=== PATIENT | male | born 1950 | race Caucasian/White ===

== ENCOUNTER 2024-10-03 14:14 | Emergency (ER) | payer MEDICARE, SELFPAY ==
--- OUTSIDE RECORDS SUMMARY | 2004-10-08 19:00 | XMS_ITS | Continuity of Care Document ---
Author Organization [facility] Address [address] [address] [place] [address] Phone Care Team Providers Care Rotary Driller Name Role Phone Unavailable Unavailable Unavailable Advance Directives Directive Yes / No Effective Date File Name No Information Encounters Encounter Description Practice Location Reason(s) For Visit Diagnoses Date Provider Providers Copied on Encounter [facility], [address] [address], [place], [place], [id number], [place] tel:[phone] [facility] No Information 6200 5 No Information Family History Family Member Type Diagnosis Age At Onset No Information Payers Payer name Insurance type Covered democrat ID Authoriza tion(s) Blue [employer] Of [facility] [id number] Social History Type Description Quantity Date Captured Comments Sex Male Smoking Status No Information Chief Complaint And Reason For Visit No Information Reason For Referral Reason For Referral No Information History Of Present Illness Encounter Date Complaint History Of Prese nt Illness No Information Functional Status Date Functional Assessmen t No Information Instructions Date Instruction Additional Infor mation No Information Assessments Type Assessment Date No Information Patient Care Teams Name Effective Dates (start - stop) Status Members No Information
--- OUTSIDE RECORDS SUMMARY | 2004-10-08 19:00 | XMS_ITS | Continuity of Care Document ---
Author Organization [facility] Address [address] [address] [place] [address] Phone Care Team Providers Care Grommet Worker Name Role Phone Unavailable Unavailable Unavailable Advance Directives Directive Yes / No Effective Date File Name No Information Encounters Encounter Description Practice Location Reason(s) For Visit Diagnoses Date Provider Providers Copied on Encounter [facility], [address] [address], [place], [place], [id number], [place] tel:[phone] [facility] No Information 6200 5 No Information Family History Family Member Type Diagnosis Age At Onset No Information Payers Payer name Insurance type Covered constitution party ID Authoriza tion(s) Blue Cross Of [facility] [id number] Social History Type Description Quantity Date Captured [...]
[2024-10-03] VITALS (8 sets, daily range): BP systolic 130–135; BP diastolic 71–99; PULSE 63–95; RESP 16–20; TEMP 37.1; O2SAT 90–98; BMI 32.3
--- OUTSIDE RECORDS SUMMARY | 2024-10-03 14:16 | XMS_ITS | Clinical Summary ---
Author Organization [facility] Address [address] , [address] [place] [address] Phone Care Team Providers Care Art Glass Setter Name Role Phone Her Adeel BERMUDEZ Nou Unavailable Conditions or Problems Problem Name Problem Code Onset Date Status Entry Date Provider Comment Standard Description Annotate Chronic kidney disease, stage 3 unspecified N18.30 (ICD-10-CM) 05/02 Active 05/02 Dieudonne Bender MD Chronic kidney disease, stage 3 unspecified Leg weakness, bilateral - mainly distal feet 090921467 (SNOMED CT) 05/02 Active 05/02 Dieudonne Bender MD Paresis of lower extremity Carpal tunnel syndrome, bilateral upper limbs 163457551952033 01 (SNOMED CT) 05/02 Active 05/02 Dieudonne Bender MD Bilateral carpal tunnel syndrome TIA 723983087 (SNOMED CT) Active Kumar Roland MD Transient cerebral ischemia Numbness/tin gling 782.0 (ICD-9-CM) 05/12 Active 05/12 Aleksandra Mistry MD Disturbance of skin sensation Neuropathy 779498857 (SNOMED CT) 05/12 Active 05/12 Aleksandra Mistry MD Neuropathy Medications Medication Instructions Start Date Stop Date Generic Name [facility] Provider GABAPENTIN 300 MG CAPS capsule by mouth 7 gabapentin 66633051035 Dieudonne Bender MD ASPIRIN 325 MG TABS once a day 7 aspirin 46534570558 Dieudonne Bender MD TRAMADOL HCL 50 MG TABS tablet by mouth 7 tramadol 51186207964 Dieudonne Bender MD METOPROLOL TARTRATE 25 MG TABS metoprolol tartrate 62408693058 Dieudonnekatharina Bender MD FUROSEMIDE 20 MG TABS furosemide 44722901091 Dieudonnekatharina Bender MD ISOSORBIDE DINITRATE 10 MG TABS isosorbide dinitrate 83762293524 Dieudonnekatharina Bender MD GLIMEPIRIDE 4 MG TABS glimepiride 23726199837 Dieudonnekatharina Bender MD HYDROCODONE-DANN TAMINOPHEN 5-325 MG TABS hydrocodone-ac etaminophen 51186648981 Dieudonnekatharina Bender MD HYDRALAZINE HCL 10 MG TABS hydralazine 66841159828 Dieudonnekatharina Bender MD ALLOPURINOL 100 MG TABS allopurinol 33322669952 Dieudonnekatharina Bender MD GABAPENTIN 300 MG CAPS 600/900/600 GABAPENTIN 23941948675 Aleksandra Mistry MD TRAMADOL HCL 50 MG TABS TRAMADOL HCL 15261491258 Aleksandra Mistry MD PERCOCET 5-325 MG TABS OXYCODONE-ACET AMINOPHEN 81667858117 Aleksandra Mistry MD ASPIRIN 325 MG TABS daily ASPIRIN 63624253103 Aleksandra Mistry MD Medications Administered No information available. Allergies, Adverse Reactions, Alerts Observed no known allergies at Results Date Name Value Unit Range Flag Description Office Visit: mail SMOK ADVICE Yes Smoking c essation education (procedure) SMOK STATUS Current every day smoker Tobacco smoking status Internal Other: Authorizatio n - OBS PTSTAUTHDT DONE PT Startin g Authorization Date [id number] Yes GE use only - for Link[employer] import when terms are not otherwise specified HIECONSENT Yes Consent To Release information to the Health Information Exchange ([employer]) Office Visit: Office Visit L eg/Feet/hands numb/ting No imaging Recs in.Exc MEDS REVIEW Done Documenta tion of current medications (procedure) Plan of Care Type Date Detail Pending order Follow up with N eurologist or TERELL Pending order Follow up with N eurologist or TERELL Pending order EMG bilateral lo w ext Pending order EMG bilateral up per ext Pending order Physical Therapy Pending order Patient Instruct ions Pending order MRI-Brain W/O Pending order MRA-Neck W/O Pending order MRI-Brain W/O Pending Order exclud ed from report: Pending order MRA-Neck W/O Pending Order exclud ed from report: Procedures Code Procedure Name Date Entry Date ORDERS EMG bilateral low ext 05/02 CPT-18488 Nerve Conduction 9-10 studies CPT-00538 EMG with NCS (5+ muscles) - 2 limbs 05/15 ORDERS EMG bilateral upper ext 2024 ORDERS Patient Instructions ORDERS Physical Therapy [facility]-[id number] Documentation of current medicatio ns [id number] MRI-Brain W/O [id number] MRA-Neck W/O Vital Signs Date Name Value Unit Description Height 71 [in_us] height E&M Heart Rate 78 /min pulse rate BMI (Body Mass Index) 30.51 kg/m2 Bod y Mass Index (Ratio) BP Diastolic 115 mm[Hg] blood pressu re, diastolic BP Diastolic 110 mm[Hg] blood pressu re, diastolic, second observation BP Systolic 169 mm[Hg] blood pressur e, systolic BP Systolic 170 mm[Hg] blood pressur e, systolic, second observation Weight Measured 218 [lb_av] weight E& M Weight Measured 218 [lb_av] weight E& M Immunizations No information available. Advance Directives No information available.
--- OUTSIDE RECORDS SUMMARY | 2024-10-03 14:17 | XMS_ITS | Clinical Summary ---
Author Organization [employer] [facility] Address [address] [place] [id number] Care Team Providers Care Fixed Income Portfolio Manager Name Role Phone Sunshine Batista MD Unavailable Unavailable Ranjit oMmin MD Unavailable Dana Esparza NP Unavailable Unavail able VotelRamone MD Primary Care Provider + Allergies Active Allergy Reactions Criticality Noted Date Comments Jeffrey Inhibitors Cough Unknown 08/12/2011 Pioglitazone Other - Describe In Comment Field 07/01/2018 Contraindicated in HF and AF due to fluid retention Glipizide Stomach Upset Low 03/09/2017 Levofloxacin Headache 06/02/2012 Dry mouth, unable to sleep and anxious Metformin GI Upset Low 06/02/2016 Abdominal cramping Medications Blood Glucose Strip-Disp Meter kitIndications:Ty pe 2 diabetes mellitus without complication, without long-term current use of insulin (HC) As directed. Dispense item covered by pt ins. E11.65 NIDDM type II, uncontrolled - Test 1 time/day 1 Kit 017 Active NebulizerIndicati ons:Obstructive chronic bronchitis without exacerbation (HC) Nebulizer, disposable neb kit x 4, reuseable neb kit x 1, mask x 1, filters x 1. Medication: DuoNeb QID Length of need: 99 months 1 Device 018 Active aspirin (ECOTRIN) 81 mg enteric coated tablet Take 1 tablet by mouth once daily with a meal. 0 020 Active Blood-Glucose Meter (OneTouch Ultra2 Meter)Indications :Type 2 diabetes mellitus with diabetic polyneuropathy, without long-term current use of insulin (HC) Dispense glucose meter, test strips and lancets covered by the patient insurance. Test 1 times per day. 1 Each 022 Active fluticasone propion-salmetero L (Advair Diskus) 250-50 mcg/Dose diskus inhalerIndication s:Chronic combined systolic and diastolic heart failure (HC) Inhale 1 Puff by mouth two times daily. 60 Each 5 024 Active cholecalciferol (VITAMIN D3) 50,000 unit capsuleIndication s:Vitamin D deficiency TAKE 1 CAPSULE BY MOUTH EVERY WEDNESDAY AND WEDNESDAY 12 Capsule 1 024 Active nebulizer accessories kitIndications: ronic obstructive pulmonary disease, unspecified COPD type (HC) For home use. Length of need: 99 1 Kit 024 Active cycloSPORINE (Restasis) 0.05 % ophthalmic emulsionIndicatio ns:Dry eye syndrome of both eyes Place 1 Drop into both eyes every 12 hours. 60 Each 3 024 Active metFORMIN 500 mg Extended-Release tabletIndications :Type 2 diabetes mellitus with diabetic polyneuropathy, without long-term current use of insulin (HC) Take 2 Tablets (1,000 mg) by mouth once daily with evening meal. 60 Tablet 3 025 Active traMADoL 50 mg tabletIndications :Peripheral polyneuropathy Take 2 Tablets (100 mg) by mouth three times daily. 180 Tablet 025 Active isosorbide dinitrate 10 mg tabletIndications :Primary cardiomyopathy (HC) TAKE 1 TABLET(10 MG) BY MOUTH THREE TIMES DAILY 270 Tablet 3 025 Active hydrALAZINE 10 mg tabletIndications :Primary cardiomyopathy (HC) TAKE 1 TABLET BY MOUTH THREE TIMES DAILY 270 Tablet 3 025 Active HYDROcodone-aceta minophen (5-325 mg/tablet)Indicat ions:Peripheral polyneuropathy Take 1 Tablet by mouth every 6 hours if needed for Pain. Max acetaminophen dose: 4000 mg in 24 hrs. 120 Tablet 025 Active glimepiride 4 mg tabletIndications :Type 2 diabetes mellitus with diabetic polyneuropathy, without long-term current use of insulin (HC) TAKE 1 TABLET(4 MG) BY MOUTH DAILY WITH A MEAL 90 Tablet 3 025 Active furosemide 20 mg tabletIndications :Chronic combined systolic and diastolic heart failure (HC),Chronic atrial fibrillation (HC) Take 1 Tablet (20 mg) by mouth two times daily. 180 Tablet 3 025 Active allopurinoL 100 mg tabletIndications :Chronic gout of left elbow, unspecified cause Take 1 Tablet (100 mg) by mouth once daily. 90 Tablet 3 025 Active albuterol-ipratro pium (2.5-0.5 mg) in 3 mL NEBULIZATION solutionIndicatio ns:Chronic obstructive pulmonary disease, unspecified COPD type (HC) USE 3 ML VIA NEBULIZER EVERY 6 HOURS NEEDED FOR SHORTNESS OF BREATH 180 mL 3 025 Active gabapentin 300 mg capsuleIndication s:Peripheral polyneuropathy TAKE 4 CAPSULES BY MOUTH TWICE DAILY 480 Capsule 025 Active metoprolol tartrate 25 mg tabletIndications :Hypertension, unspecified type TAKE 3 TABLETS(75 MG) BY MOUTH TWICE DAILY 540 Tablet 2 025 Active gabapentin (NEURONTIN) 300 mg capsuleIndication s:Peripheral polyneuropathy TAKE 4 CAPSULES BY MOUTH TWICE DAILY 720 Capsule 2 024 2024 Discontinued metoprolol tartrate 25 mg tabletIndications :Hypertension, unspecified type TAKE 3 TABLETS(75 MG) BY MOUTH TWICE DAILY 540 Tablet 3 025 2024 Discontinued(* Availability/F ormulary change/Cost of medication) Active Problems Problem Noted Date Diagnosed Date Diabetic ulcer of left midfo ot associated with type 2 diabetes mellitus, limited to breakdown of skin 08/07/2024 Chronic obstructive pulmonar y disease, unspecified COPD type 06/22/2023 Aortic dilatation 07/09/2022 Tubular adenoma of colon 02/26/2020 Overview (02/28/2020): Multiple benign polyps, repeat colonoscopy in 3 years. Severe obesity 03/21/2019 Stage 3b chronic kidney disease 06/05/2018 Overview (01/30/2020): GFRs ranging from 36-41 during Type 2 diabetes mellitus wit h diabetic polyneuropathy, without long-term current use of insulin 12/04/2016 Cortical senile cataract of both eyes 07/27/2016 Myopia of both eyes with astigmatism and presbyo darian 07/27/2016 Trigeminal herpes zoster 05/01/2016 Tobacco dependence 06/04/2015 Thrombocytopenia 01/12/2015 Controlled substance agreement signed and wily singh 08/13/10 03/07/2014 Overview (07/09/2022): Updated 07/09/2022 [place] 5/325 120 tabs/month ; Ultram 50 mg 2 oral TID = 180 tabs/month Designated pharmacy: [facility] Diagnosis: elbow pain, peripheral neuropathy in diabetes mellitus Erectile dysfunction 02/15/2012 Overview (07/20/2017): Since cardiac bypass pump machine 7 hours for valve viagra 100 not working Offered injection and pump and he declined Offered he could choose between cigarettes and erections. After 3 months off cigarettes likely viagra would work. He will think about it. S/P MVR (mitral valve repair ) 36 mm Robertson Physio II mitral annuloplasty system 11/12/2011 S/P Maze operation for atria l fibrillation obliteration of left atrial appendage with 50 mm AtriCure left atrial appndage clip 11/12/2011 Hyperbilirubinemia 11/12/2011 Atrial fibrillation, chronic 04/26/2011 Overview (02/01/2020): s/p Maze procedure and clipping of left atrial appendage Vitamin D deficiency 07/23/2010 DERMATITIS/seborreic 04/21/2006 CEREBELLAR INFARCT 10/21/2004 Gout 11/17/2001 Essential hypertension Resolved Problems Problem Noted Date Diagnosed Date Resolved Date Combined systolic and diastolic heart failure 07/02/19 19 07/09/2022 Tobacco dependence 06/05/2018 9 COPD with acute exacerbation 06/05/2018 01/20/2022 Upper respiratory infection 06/05/2018 07/09/2022 Diabetic ulcer of right midf oot associated with diabetes mellitus due to underlying condition, with fat layer exposed 09/17/20162019 Diabetes mellitus without complication 07/27/2016 09/03/2017 Erysipelas of lower extremity 01/13/2015 06/05/2018 Cellulitis and abscess of leg 01/12/2015 06/05/2018 Anemia due to blood loss from surgery 11/12/2011 02/04/2012 Thrombocytopenia due to extr a corporeal by-pass circulation 11/12/2011 02/04/2012 Stress hyperglycemia 11/12/2011 012 COPD (chronic obstructive pulmonary disease) 2 01/20/2022 Subacute bacterial endocarditis (SBE) 08/12/2011 01/20/2022 Peripheral neuropathy 07/04/20092022 Overview (02/21/2019): Treated with tramadol 50 mg 2 tabsTID and [place] 5/325 QID in addition to gabapentin and Lyrica. Other diseases of trachea an d bronchus, not elsewhere classified 03/26/2004 06/09/2005 PAIN IN JOINT, ANKLE/FOOT ARTHRALGIA - UNSPECIFIED SITE 03/26/2004 Rectal bleed 07/09/2022 Encounters Date Type Department Care Team Description 09/29/2024 Refill [facility] [address] [place] [address] Ramone Pearosn MD Refill Request (Gabapentin, Metoprolol Tartrate) 08/09/2024 Telephone [facility] [address] [place] [address] Ramone Pearson MD Message (Custom diabetes shoes) 08/08/2024 Telephone [facility] [address] [place] [address] Ramone Pearson MD Form 08/07/2024 Telephone [facility] [address] [place] [address] Ramone Pearson MD Medication Management 08/03/2024 3:20 PM CDT Office Visit [facility] [address] [place] [address] Ramone Pearson MD Medicare ANNUAL (subsequent) Visit (74 year old ) 08/03/2024 Travel 07/31/[address] [place] [address] VotelRamone MD Questions (Regarding appt 08/03/24) 07/30/2024 Refill [facility] [address] [facility] [address] VotelRamone MD Refill Request (Glimepiride, Furosemide, Allopurinol) from Last 3 Months Immunizations Immunization Administration Dates Next Due COVID-19 vaccine (Moderna 100mcg/0.5mL) PF, MDV 07/04/2020,06/07/2020 COVID-19 vaccine (Pfizer-Bio NTech 30mcg/0.3mL) PF, MDV 03/17/2021 Influenza RIV4 (Age 18+ Year s) PRESERV FREE 02/06/2019 Influenza, High-dose Inactivated 01/24/2017 Influenza, IIV3 (Age >=3 years) 01/29/20 12,04/25/2011,02/13/2011,2006,03/28/2003 Influenza, IIV4 01/13/2015 Influenza, Inactivated AIIV4 (Age 65+ Years) Preserv Free 01/20/2022,02/03/2021,01/29/2020 Influenza, Inactivated IIV3 (Age 65+ Years) Preserv Free 06/06/2018(),02/28/2018 Pneumococcal Poly,23-Valent (Pneumovax) 01/29/2020,04/25/2002 Pneumococcal conj 13-Valent (Prevnar 13) 05/27/2017 Tdap 10/09/2011 Zoster (Shingrix-RZV, recombinant) 01/29/2020, Family History Medical History Relation Name Comments Blindness Mother Unknown Mother Glacoma Genetic Other No hx of DM, CA D, HTN or colon or prostate cancer.~glaucoma-mother Relation Name Status Comments Father Mother Other Social History Tobacco Use Types Packs/Day Years Used Date Smoking Tobacco: Every Day Cigarettes 0.5 47.3 Started: 07/01/1978 Smokeless Tobacco: Never Tobacco Cessation:Ready to Q uit: No; Counseling Given: Yes Comments:5 cigs/day, pt declined info Alcohol Use Standard Drinks/Week Comments Yes 0 (1 standard drink = 0.6 oz pur e alcohol) 3-4 drinks per week PHQ-2 Answer Date Recorded PHQ-2 TOTAL SCORE 0 08/03/2024 Social Connections Answer Date Recorded Do you often feel lonely or isolated from those around you? 0 10/05/2023 Financial Resource Strain Answer Date R ecorded Difficulty of Paying Living Expenses 3 10/05/2023 Difficulty of Paying Living Expenses Not on file 10/05/2023 Food Insecurity Answer Date Recorded Do you worry your food will run out before you are able to buy more? 1 10/05/2023 Transportation Needs Answer Date Record ed Does lack of transportation keep you from medica l appointments? 1 10/05/2023 Does lack of transportation keep you from work, meetings or getting things that you need? 1 10/05/2023 Housing Stability Answer Date Recorded What is your housing situation today? 1 10/05/2023 Utilities Answer Date Recorded Do you have trouble paying f or utilities (for example, heat, electricity, water, phone)? 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 Not on file Not on file Obstetrics History Last Filed Vital Signs Vital Sign Reading Time Taken Comments Blood Pressure 122/81 08/03/2024 3:50 PM CDT Pulse 71 08/03/2024 3:50 PM CDT Temperature 35.7 C (96.3 F) 03/26/2023 1:56 PM [employer]PER[employer] Respiratory Rate 16 02/18/2024 1:00 PM CDT Oxygen Saturation 96% 08/03/2024 3:50 PM CDT Inhaled Oxygen Concentration - - Weight 102.8 kg (226 lb 11.2 oz) 08/03/2024 3:50 PM CDT Height 175.3 cm (5' 9) 08/03/2024 3:50 PM CDT Body Mass Index 33.48 08/03/2024 3:50 PM CDT Plan of Treatment Upcoming Encounters Date Type Department Care Team (Late st Contact Info) Description 11/07/2024 3:45 PM CDT Office Visit [facility] [address] [facility] [address] Ramone Pearson MD [address] [place] [address] Health Maintenance Due Date Last Done Comments RSV vaccine for adults or (1 - Risk 60-74 years 1-dose series) [address] (for lung CA) age 50-80 08/10/2012 08/11/2011 Tetanus booster 10/08/2021 10/09/2011 Colonoscopy through age 75 02/25/2023 02/26/2020 COVID-19 vaccine series ( season) 2023 03/17/2021, 07/04/2020, 06/07/2020 Influenza Vaccine (Season Ended) 2024 01/20/2022, 02/03/2021, 01/29/2020, Additional history exists BMI (ht and wt on same day) for age 18+ 08/03/2025 08/03/2024, 02/18/2024, 10/05/2023, Additional history exists Depression screening for age 12+ 08/03/2025 08/03/2024, 10/05/2023, 07/09/2022, Additional history exists Medicare Wellness for age 65+ 08/04/2025 08/03/2024, 07/09/2022, 01/29/2020 Lipids for age 45-75 08/03/2029 08/03/2024, 06/22/2023, 01/20/2022, Additional history exists Hepatitis C screening for age 18-79 Completed 10/10/2004 Tdap Completed 10/09/2011 Pneumococcal series for age 50+ Completed 01/29/2020, 05/27/2017, 04/25/2002 Zoster (shingles) series for age 50+ Completed 01/29/2020, 02/06/2019 AAA screening age 65-74 Completed 09/17/19, 09/16/2022, 08/11/2011 Hepatitis B series for 19+ Aged Out N o longer eligible based on patient's age to complete this topic Medical Devices Implanted Type Area Printed Circuit Boards Inspector Device Identifier Shelf Expiration Date Model / Serial / Lot Ring Annuloplasty 36mm Physio Ii - [id number] Implanted:Qty: 1 on 11/11/2011 by Rick Juan MD at [facility] N/A: Mitral Valve 04/25/2015 [id number] / [id number] / Procedures Procedure Name Priority Date/Time Associated Diagnosis Comments BASIC METABOLIC PANEL Routine 08/03/2024 3:33 PM CDT Annual physical exam LIPID PANEL W REFLEX MEASURED LDL Routine 08/03/2024 3:33 PM CDT Type 2 diabetes mellitus with diabetic polyneuropathy, without long-term current use of insulin (HC) HEMOGLOBIN A1C MONITORING (POCT) Routine 08/03/2024 3:32 PM CDT Type 2 diabetes mellitus with diabetic polyneuropathy, without long-term current use of insulin (HC) CT ABDOMEN PELVIS STONE PROTOCOL WO STAT 09/16/2022 3:46 PM CDT Reddish colored urine Gross hematuria JAMIL (acute kidney injury) COLONOSCOPY 02/26/2020 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 Concepcion et al. J. of Clin. Lipidol. 2015;9:129-169. LDL-CHOLESTEROL 71 mg/dL (calc) [facility] Comment: Reference range: <100 Desirable range <100 mg/dL for primary prevention; <70 mg/dL for patients with CHD or diabetic patients with > or = 2 CHD risk factors. LDL-C is now calculated using the Zacarias calculation, which is a validated novel method providing better accuracy than the Friedewald equation in the estimation of LDL-C. Russell BOLIVAR et al. SHERWIN. 2013;310(19): 5785-2936 (http://education.Farmeron/faq/CHR499) CHOL/HDLC RATIO 3.6 <5.0 (calc) [facility] NON HDL CHOLESTEROL 105 <130 mg/dL (calc) [facility] Comment: For patients with diabetes plus 1 major ASCVD risk factor, treating to a non-HDL-C goal of <100 mg/dL (LDL-C of <70 mg/dL) is considered a therapeutic option. Blood BLOOD SPECIMEN / Unknown 08/03/2024 3:33 PM CDT 08/03/2024 3:34 PM CDT Ramone Pearson MD CHEMISTRY Final Re sult [employer] [facility] [address] [place] [address], [email or web address] [address] [place] [address] * (ABNORMAL) BASIC METABOLIC PANEL (08/03/2024 3:33 PM CDT) [facility] GLUCOSE 271(H) 65 - 99 mg/dL [facility] Comment: Fasting reference interval For someone without known diabetes, a glucose value >125 mg/dL indicates that they may have diabetes and this should be confirmed with a follow-up test. UREA NITROGEN (BUN) 13 7 - 25 mg/dL [facility] CREATININE 1.48(H) 0.70 - 1.28 mg/dL [facility] EGFR 50(L) > OR = 60 mL/min/1.7 3m2 [facility] BUN/CREATININE RATIO 9 6 - 22 (calc) [facility] SODIUM 139 135 - 146 mmol/L [facility] POTASSIUM 4.2 3.5 - 5.3 mmol/L [facility] CHLORIDE 99 98 - 110 mmol/L [facility] CARBON DIOXIDE 31 20 - 32 mmol/L [facility] ELECTROLYTE BALANCE 9 7 - 17 mmol/L (calc) [facility] CALCIUM 9.5 8.6 - 10.3 mg/dL [facility] Blood BLOOD SPECIMEN / Unknown 08/03/2024 3:33 PM CDT 08/03/2024 3:34 PM CDT Ramone Pearson MD CHEMISTRY Final Re sult Performing Organization Address [facility]/ZIP Co de Phone Number [employer] [facility] [address] [place] [address], [place] [phone] [email or web address] [id number] [place] [address] * (ABNORMAL) POCT Hemoglobin A1C Monitoring (08/03/2024 3:32 PM CDT) POC HEMOGLOBIN A1C 11.4(H) <6.0 % OF TOTAL HGB [facility] Comment: Any point of care results exhibiting inconsistency with the patient's clinical status should be repeated using a different testing method. Blood BLOOD SPECIMEN / Unknown 08/03/2024 3:32 PM CDT 08/03/2024 3:33 PM CDT Ramone Pearson MD CHEMISTRY Final Re sult Performing Organization Address [facility]/ZIP Co de Phone Number [facility] [address] [place] [address], [place] [phone] [facility] [address] [place] [address] * CT ABDOMEN PELVIS STONE PROTOCOL WO (09/16/2022 3:46 PM CDT) Anatomical Region Laterality Modality Abdomen, Pelvis, AORTA, LIVER, SPLEEN Computed Tomography 09/16/2022 3:57 PM CDT Impressions 09/16/2022 3:57 PM CDT 1. Bilateral nephrolithiasis. 2. 9 mm x 5 mm stone in the right distal ureter resulting in mild to moderate hydroureteronephrosis. 3. Colonic diverticulosis. 4. Fatty atrophy of the pancreas with evidence of chronic pancreatitis. Please note that all CT scans at this facility use dose modulation, iterative reconstruction, and/or weight-based dosing when appropriate to reduce radiation dose to as low as reasonably achievable. Dictated by Mustapha Duke MD @ 09/16/2022 3:57:12 PM (Electronically Signed) Narrative 09/16/2022 3:57 PM CDT For Patients: As a result of the Cures Act, medical imaging exams and procedure reports are released immediately into your electronic medical record. You may view this report before your referring provider. If you have questions, please contact your health care provider. INDICATION : Gross hematuria. Flank pain. Kidney stone suspected. COMPARISON : CT scan of the abdomen and pelvis 08/11/2011. TECHNIQUE: CT abdomen and pelvis without contrast. FINDINGS: Lower chest: Minimal linear atelectasis and/or scarring in the lung bases. Liver: Normal in size and attenuation. No suspicious masses. Gallbladder and bile ducts: No stones or inflammation. No biliary dilatation. Pancreas: Diffuse fatty atrophy of the pancreas with scattered coarse calcifications consistent with chronic pancreatitis. Spleen: Normal in size. No masses. Adrenal glands: Normal in size. No nodules. Kidneys: Tiny bilateral renal nonobstructing stones. There is a stone measuring 9 mm long by 5 mm in diameter within the right distal ureter (image 128, series 2 and image 71, series 4). Mild to moderate right hydroureteronephrosis is present. The left ureter is unremarkable. The urinary bladder is unremarkable. GI tract: There are numerous diverticuli throughout the descending and sigmoid colon. No diverticulitis. The stomach and small bowel are unremarkable. No acute appendicitis. Vasculature: Mild to moderate atherosclerosis of the abdominal aorta without aneurysm. Lymph nodes: No lymphadenopathy. Peritoneum/Abdominal Wall: Unremarkable. No sign of mass or infiltration. No free air or significant free fluid. Pelvis: Unremarkable. No pelvic masses. Bones: Unremarkable for age. Procedure Note Mustapha Duke MD - 09/16/2022 For Patients: As a result of the Century Cures Act, medical imagingexams and procedure reports are released immediately into your electronicmedical record. You may view this report before your referring provider.If you have questions, please contact your health care provider. INDICATION : Gross hematuria. Flank pain. Kidney stone suspected. COMPARISON : CT scan of the abdomen and pelvis 08/11/2011. TECHNIQUE: CT abdomen and pelvis without contrast. FINDINGS: Lower chest: Minimal linear atelectasis and/or scarring in the lung bases. Liver: Normal in size and attenuation. No suspicious masses. Gallbladder and bile ducts: No stones or inflammation. No biliarydilatation. Pancreas: Diffuse fatty atrophy of the pancreas with scattered coarsecalcifications consistent with chronic pancreatitis. Spleen: Normal in size. No masses. Adrenal glands: Normal in size. No nodules. Kidneys: Tiny bilateral renal nonobstructing stones. There is a stonemeasuring 9 mm long by 5 mm in diameter within the right distal ureter(image 128, series 2 and image 71, series 4). Mild to moderate righthydroureteronephrosis is present. The left ureter is unremarkable. Theurinary bladder is unremarkable. GI tract: There are numerous diverticuli throughout the descending andsigmoid colon. No diverticulitis. The stomach and small bowel areunremarkable. No acute appendicitis. Vasculature: Mild to moderate atherosclerosis of the abdominal aortawithout aneurysm. Lymph nodes: No lymphadenopathy. Peritoneum/Abdominal Wall: Unremarkable. No sign of mass or infiltration.No free air or significant free fluid. Pelvis: Unremarkable. No pelvic masses. Bones: Unremarkable for age. IMPRESSION: 1. Bilateral nephrolithiasis. 2. 9 mm x 5 mm stone in the right distal ureter resulting in mild tomoderate hydroureteronephrosis. 3. Colonic diverticulosis. 4. Fatty atrophy of the pancreas with evidence of chronic pancreatitis. Please note that all CT scans at this facility use dose modulation,iterative reconstruction, and/or weight-based dosing when appropriate toreduce radiation dose to as low as reasonably achievable. 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 The patient had a stable cardiopulmonary status and judged an adequate candidate for conscious sedation. The colonoscope was passed through the anus and advanced to thececum, identified by appendiceal orifice and ileocecal valve. Thecolonoscopy was performed without difficulty. The patient tolerated the procedure well. The quality of the bowel preparation was good. The ileocecal valve, appendiceal orifice, and rectum were photographed. Complications: No immediate complications. Estimated Blood Loss & Specimen: Estimated blood loss: none. Specimen collected - Yes and sent to Laboratory Findings: The perianal and digital rectal examinations were normal. A 7 mm polyp was found in the cecum. The polyp was sessile. The polyp was removed with a hot snare. Resection and retrieval werecomplete. A 5 mm polyp was found in the hepatic flexure. The polyp was sessile. The polyp was removed with a hot snare. Resection and retrieval were complete. A 5 mm polyp was found in the proximal descending colon. The polypwas sessile. The polyp was removed with a hot snare. Resection andretrieval were complete. Two sessile polyps were found in the mid descending colon. The polyps were 5 to 7 mm in size. These polyps were removed with a hot snare. Resection and retrieval were complete. A 5 mm polyp was found in the distal descending colon. The polyp was sessile. The polyp was removed with a hot snare. Resection andretrieval were complete. Multiple small and large-mouthed diverticula were found in the entire colon. Impressions/Post-Op Diagnosis: - One 7 mm polyp in the cecum, removed with a hot snare. Resected and retrieved. - One 5 mm polyp at the hepatic flexure, removed with a hot snare. Resected and retrieved. - One 5 mm polyp in the proximal descending colon, removed with a hot snare. Resected and retrieved. - Two 5 to 7 mm polyps in the mid descending colon, removed with ahot snare. Resected and retrieved. - One 5 mm polyp in the distal descending colon, removed with a hot snare. Resected and retrieved. - Diverticulosis in the entire examined colon. Recommendation: - Discharge patient to home. - Resume previous diet. - Continue present medications. - Await pathology results. - Repeat colonoscopy in 5 years for surveillance. Moderate Sedation: See the other procedure note for documentation of moderate sedationwith intraservice time. Baldo Pina, 02/26/2020 11:42:14 AM This report has been signed electronically. Note Initiated On: 02/26/2020 10:16 AM us Baldo Pina MD PROCEDURE ORD Final Res ult * CT CHEST/ABD/PELVIS W IV CONTRAST (08/11/2011 4:15 PM CDT) Anatomical Region Laterality Modality Abdomen, Pelvis, AORTA, LIVER, SPLEEN Computed Tomography Impressions 08/12/2011 10:07 AM CDT 1. Lung roland are clear. 2. Cardiomegaly. 3. Contracted gallbladder, see discussion above for recommendation. 4. Duodenal diverticula. 5. Normal appendix. 6. Distal colonic diverticulosis without evidence of diverticulitis. 7. No acute changes seen within the chest, abdomen or pelvis. 8. No metastasis or mass seen. 9. Other findings as noted above. Narrative 08/12/2011 10:[address] CHEST, ABDOMEN AND PELVIS WITH CONTRAST CLINICAL HISTORY: Weight loss 40 pounds, no appetite. TECHNIQUE: 2.5 mm axial scans of the chest were obtained during intravenous contrast administration. 2.5 mm axial scans of the abdomen and pelvis were obtained during intravenous contrast administration, oral contrast was given prior to exam. Multiple coronal reconstruction views of the abdomen and pelvis were obtained. 97 cc of Omnipaque-300 was used intravenously. FINDINGS: CT scan of the chest reveals cardiomegaly. No evidence of pericardial fluid. No mediastinal or hilar adenopathy or mass seen. No suspicious filling defects are seen within the intrathoracic aorta or the proximal pulmonary arteries. Lung roland are clear. No pneumothorax or pleural fluid is seen. Chest wall is unremarkable. No metastasis identified. CT scan of the abdomen and pelvis reveal the gallbladder is mildly contracted consistent with non-fasting state. There is no stomach food debris present however. If the patient is fasting, the gallbladder may be dysfunctional and a nuclear hepatobiliary scan may be helpful. The liver is unremarkable. The spleen is upper limits of normal in size and normal in appearance. No abnormality of the pancreas, bilateral adrenal glands or kidneys. No pyelonephritis, hydronephrosis or pancreatitis changes identified. No adenopathy visualized. No suspicious mass or metastasis seen. The stomach wall is unremarkable. There is gas filled duodenal diverticula present. No abnormality of the small bowel or appendix. No evidence of appendicitis. Distal colonic diverticulosis without evidence of diverticulitis and the colon is otherwise normal. No free air or free fluid, inflammatory changes to fat or abscess seen. The bladder wall is negative. Procedure Note Sage Montes MD - 08/12/2011 CT CHEST, ABDOMEN AND PELVIS WITH CONTRAST CLINICAL HISTORY: Weight loss 40 pounds, no appetite. TECHNIQUE: 2.5 mm axial scans of the chest were obtained duringintravenous contrast administration. 2.5 mm axial scans of the abdomenand pelvis were obtained during intravenous contrast administration, oralcontrast was given prior to exam. Multiple coronal reconstruction viewsof the abdomen and pelvis were obtained. 97 cc of Omnipaque-300 was used intravenously. FINDINGS: CT scan of the chest reveals cardiomegaly. No evidence ofpericardial fluid. No mediastinal or hilar adenopathy or mass seen. Nosuspicious filling defects are seen within the intrathoracic aorta or theproximal pulmonary arteries. Lung roland are clear. No pneumothorax orpleural fluid is seen. Chest wall is unremarkable. No metastasisidentified. CT scan of the abdomen and pelvis reveal the gallbladder is mildlycontracted consistent with non-fasting state. There is no stomach fooddebris present however. If the patient is fasting, the gallbladder may bedysfunctional and a nuclear hepatobiliary scan may be helpful. The liver is unremarkable. The spleen is upper limits of normal in sizeand normal in appearance. No abnormality of the pancreas, bilateraladrenal glands or kidneys. No pyelonephritis, hydronephrosis orpancreatitis changes identified. No adenopathy visualized. No suspicious mass or metastasis seen. The stomach wall is unremarkable.There is gas filled duodenal diverticula present. No abnormality of thesmall bowel or appendix. No evidence of appendicitis. Distal colonicdiverticulosis without evidence of diverticulitis and the colon isotherwise normal. No free air or free fluid, inflammatory changes to fator abscess seen. The bladder wall is negative. IMPRESSION: 1. Lung roland are clear. 2. Cardiomegaly. 3. Contracted gallbladder, see discussion above for recommendation. 4. Duodenal diverticula. 5. Normal appendix. 6. Distal colonic diverticulosis without evidence of diverticulitis. 7. No acute changes seen within the chest, abdomen or pelvis. 8. No metastasis or mass seen. 9. Other findings as noted above. us Carole Hernandez MD CT Yuki l Result * ANTI HCV (10/10/2004 6:29 AM CDT) ANTI HCV Non-reactiv e [facility] 10/10/2004 6:29 AM CDT 10/10/2004 2:07 AM CDT [facility] - 10/14/2004 12:32 PM CDT Testing Performed By [facility], [place] us Luigi Cummings MD SEND OUTS Final Result [facility] [address] [place] [address] from Last 3 Months or Most Recently Relevant to Health Maintenance Insurance [facility] [employer] ATTN: [place] [address] [employer] ATTN: [place] [address] [employer] MEDICARE ADVANTAGE MEDICARE PART A HB ONLY [facility] ATTN: [place] [address] [facility] Advance Directives * Full Code (Latest Code Status on File) Date Activated Date Inactivated Comments 11/05/2022 12:09 PM 11/05/2022 5:35 PM Question Answer Comments Code Status Discussion: Unable to Assess Preferences, Provider to review later * Full Code Date Activated Date Inactivated Comments 06/05/2018 3:57 AM 06/07/2018 2:17 PM Question Answer Comments Code Status Discussion: Discussed * Full Code Date Activated Date Inactivated Comments 09/18/2016 6:38 AM 09/18/2016 12:31 PM Question Answer Comments Code Status Discussion: Not Discussed * Full Code Date Activated Date Inactivated Comments 01/12/2015 4:15 PM 01/14/2015 7:10 PM * Full Code Date Activated Date Inactivated Comments 01/25/2012 9:38 AM 01/25/2012 4:12 PM Care Teams Fixed Income Portfolio Manager Relationship Specialty Start Date End Date VotelRamone MD [address] [place] [id number] PCP - General Family Practice 08/03/24 Sunshine Batista MD Neurology 01/07/11 [place] [address] [place] [address] Consulting Physician Cardiovascular Disease 10/23/13 [place] [address] [place] [address] Nurse Practitioner Cardiovascular Disease 07/01/18
--- NOTE | 2024-10-03 14:32 | ED_ITS ---
HPI - General Adult General Date Seen: 10/03/24 Chief complaint: Shortness of Breath/Dyspnea Stated complaint: COPD, trouble breathing Time Seen by Provider: 10/03/24 14:29 History of Present Illness HPI narrative: 74 yo M with a h/o COPD, NIDDM, hypertension, CAD (history of CABG), presenting to ER for evaluation of SOB. He has history of COPD and generally uses his nebulizer with DuoNeb twice every day. He has been sick with what he and his think are probably a viral illness that he picked up from his children. Symptoms started 2 days ago on Wednesday with mild stuffy nose and cough. Since then he has also developed a cough that is somewhat wet sound lumen nonproductive. No fevers. No he sore throat. No chest pain. Not having any palpitations. No swelling in his legs. No vomiting or diarrhea. No rash. His is with him and she does have a mild sore throat as well. He also notes that he typically does his DuoNeb twice per day, but that his machine has been broken for the past couple of days so he has not been able to take his meds. Related Data Home Medications ?Medication ?Instructions ?Recorded ?Confirmed allopurinol 100 mg tablet 100 mg PO DAILY 10/03/2402/17 furosemide 20 mg tablet 20 mg PO BID 10/03/24 gabapentin 300 mg capsule mg PO 10/03/24 glimepiride 4 mg tablet 4 mg PO DAILY 10/03/2410/03 hydralazine 10 mg tablet 10 mg PO 3XD 10/03/24 ipratropium 0.5 mg-albuterol 3 mg 3 ml inhalation Q6H PRN dyspnea 10/03/24 10/03/24 (2.5 mg base)/3 mL nebulization soln isosorbide dinitrate 10 mg tablet 10 mg PO 3XD 5 10/03/24 metformin 500 mg tablet,extended 500 mg PO BID 5 10/03/24 release 24 hr metoprolol tartrate 25 mg tablet mg PO 10/03/24 Previous Rx's ?Medication ?Instructions ?Recorded ipratropium 0.5 mg-albuterol 3 mg 3 ml inhalation Q4H PRN #90 mL 10/03/24 (2.5 mg base)/3 mL nebulization soln nebulizers (Compact Compressor #1 ea 10/03/24 Nebulizer) prednisone 20 mg tablet 40 mg (2 x 20 mg) PO DAILY # 10 tabs 10/03/24 Allergies Allergy/AdvReac Type Severity Reaction Status Date / Time Sulfa (Sulfonamide Allergy Unknown Verified 10/03/24 14:25 Antibiotics) [facility] Social History Smoking Status: Current every day smoker How often do you have a drink containing alcohol: monthly or less How many standard drinks containing alcohol do you have on a typical day: 1 or 2 AUDIT-C Alcohol total score: 1 Non-prescribed substance use: denies use Exam Narrative: Exam Narrative: Constitutional: Appears well-developed and well-nourished. Alert. Conversant. Polite Non toxic. Sat 91% room air. HENT: Head: Atraumatic. Nose: Nose normal. Mouth/Throat: Oral mucosa is clear and moist. no trismus. Pharynx normal. Tonsils symmetric. No tonsillar enlargement, erythema, or exudate. Eyes: Conjunctivae normal. EOM normal. Pupils equal, round, and reactive to light. No scleral icterus. Neck: Normal range of motion. Neck supple. No tracheal deviation present. No JVD Cardiovascular: Normal rate, irregularly irregular rhythm. No gallop. No friction rub. No murmur heard. Symmetric radial artery pulses Pulmonary/Chest: Effort normal. No stridor. No respiratory distress. Diffuse coarse wheezes and rhonchi in all lung roland. No tenderness. Abdominal: Soft.o distension. No mass. No tenderness. No rebound. No guarding. Musculoskeletal: RUE: Normal range of motion. No tenderness. No deformity LUE: Normal range of motion. No tenderness. No deformity RLE: Normal range of motion. No edema. No tenderness. No deformity LLE: Normal range of motion. No edema. No tenderness. No deformity Neurological: Alert and oriented to person, place, and time. Normal strength. CN II-VII intact. No sensory deficit. GCS eye subscore is 4. GCS verbal subscore is 5. GCS motor subscore is 6. Normal coordination Skin: Skin is warm and dry. No rash noted. No pallor. Normal capillary refill. Psychiatric: Normal mood. Normal affect. Const: Vital Signs, click to edit/add: Vital Signs - 24 hr 10/03/24 14:21 10/03/24 15:15 10/03/24 15:31 Temperature 98.8 F Pulse Rate 69 95 Pulse Rate [Pulse Oximeter] 87 Respiratory Rate 20 Blood Pressure Blood Pressure [Ri ght Upper Arm] 135/71 Pulse Oximetry 91 98 Oxygen Delivery Me thod Room Air 10/03/24 15:45 10/03/24 16:02 10/03/24 16:15 Temperature Pulse Rate 72 72 68 Pulse Rate [Pulse Oximeter] Respiratory Rate 16 Blood Pressure 130/99 H Blood Pressure [Ri ght Upper Arm] Pulse Oximetry 90 93 Oxygen Delivery Me thod Room Air 10/03/24 16:16 10/03/24 16:30 Temperature Pulse Rate 76 63 Pulse Rate [Pulse Oximeter] Respiratory Rate Blood Pressure Blood Pressure [Ri ght Upper Arm] Pulse Oximetry 95 93 Oxygen Delivery Me thod Course Course ED Course: Recheck after DuoNeb says he is feeling a bit better. Lung sounds are still fairly wheezy. Reevaluation(s) Reevaluation #1: Recheck, still mild wheezing but much better compared to arrival and improved after his 2nd neb. he is eager for discharge home. Vital Signs Vital signs: Initial Vital Signs Temperature 98.8 F 10/03/24 14:21 Temperature Source Temporal Artery Scan 10/03/24 14:21 Pulse Rate 87 10/03/24 14:21 Respiratory Rate 20 10/03/24 14:21 Blood Pressure 135/71 10/03/24 14:21 Blood Pressure Mean 92 10/03/24 14:21 Blood Pressure Position Sitting 10/03/24 14:21 Pulse Oximetry 91 10/03/24 14:21 Oxygen Delivery Method Room Air 10/03/24 14:21 Vital Signs Temperature 98.8 F 10/03/24 14:21 Pulse Rate 87 10/03/24 14:21 Respiratory Rate 20 10/03/24 14:21 Blood Pressure 135/71 10/03/24 14:21 Pulse Oximetry 91 10/03/24 14:21 Oxygen Delivery Method Room Air 10/03/24 14:21 Temperature 98.8 F 10/03/24 14:21 Pulse Rate 63 10/03/24 16:30 Respiratory Rate 16 10/03/24 16:15 Blood Pressure 130/99 H 10/03/24 16:15 Pulse Oximetry 93 10/03/24 16:30 Oxygen Delivery Method Room Air 10/03/24 16:15 Medications Administered Medications: Discontinued Medications Generic Name Dose Route Start Last Admin Trade Name Perla PRN Reason Stop Dose Admin Albuterol/Ipratropium 1 neb 10/03/24 15:01 10/03/24 15:08 Iprat-Albut 0.5-2.5 Mg/3 Ml Formerly [facility] 10/03/24 15:02 1 neb ONCE ONE Administration Albuterol/Ipratropium 1 neb 10/03/24 16:08 10/03/24 16:14 Iprat-Albut 0.5-2.5 Mg/3 Ml Neb 10/03/24 16:09 1 neb ONCE ONE Administration Prednisone 40 mg 10/03/24 14:53 10/03/24 15:08 Prednisone 20 Mg Tablet PO 10/03/24 14:54 40 mg ONCE ONE Administration Medical Decision Making MDM Narrative Medical decision making narrative: This patient presents for evaluation of cough, nasal congestion, shortness of breath and wheezing. Signs and symptoms are consistent with COPD exacerbation. Likely triggered by viral URI. PCR is negative for COVID and influenza. Chest x-ray is negative. He is not having any chest pain but A broad differential was considered including asthma, pneumonia, bronchitis, pneumothorax, viral induced wheezing, allergic phenomena, among others. Screening EKG shows no ischemia. Troponin is negative. He is not having chest pain. There are no signs at this point of any serious etiologies including those mentioned above. The patient feels and sounds improved after interventions here in ED. No indication for hospitalization at this time including no hypoxia, no marked increase in respiratory rate, and there are minimal to no retractions. Supportive outpatient management is indicated, medications for discharge noted above. Close followup with primary care physician. Return if increased wheezing, progressive shortness of breath, develops fever greater than 102. Questions answered and patient comfortable with plan. He is eager and is requesting discharge soon. Prescriptions for DuoNebs, new nebulizer machine to help him receive his medications, and a 5 day burst of prednisone. Precautions for return to the ER reviewed. Lab Data Labs: Lab Results 10/03/24 10/03/24 10/03/24 Range/Units 14:31 14:53 15:06 WBC 5.11 (4.50-11.00) K/uL RBC 4.65 (4.30-5.90) m/uL Hgb 15.2 (13.5-17.5) gm/dL Hct 45.9 (37.0-53.0) % MCV 99 (80-100) fL MCH 33 (26-34) pg MCHC 33 (32-36) gm/dL RDW Coeff of Tayo 13.0 (11.5-15.5) % Plt Count 99 L (140-440) K/uL Neut % (Auto) 66.7 (42.0-72.0) % Lymph % (Auto) 20.0 (20-44) % [place] % (Auto) 11.5 H (0.0-11.0) % Eos % (Auto) 1.0 (0.0-7.0) % Baso % (Auto) 0.6 (0.0-3.0) % Neut # (Auto) 3.41 (1.7-7.0) K/uL Lymph # (Auto) 1.02 (0.90-2.90) K/uL [place] # (Auto) 0.60 (0.00-0.90) K/UL Eos # (Auto) 0.05 (0.00-0.50) K/uL Baso # (Auto) 0.03 (0.00-0.30) K/uL Abs Immat Gran (auto) 0.01 (0.00-0.30) K/uL Imm/Tot Granulo (auto) 0.2 % VBG pH 7.402 (7.32-7.43) VBG pCO2 50 (40-50) mmHG VBG pO2 42.5 (25-47) mmHG VBG HCO3 31 H (21-28) mmol/L Sodium 136 (135-149) mmol/L Potassium 4.1 (3.6-5.1) mmol/L Chloride 98 (96-114) mmol/L Carbon Dioxide 30 (20-32) mmol/L Anion Gap 8 (7-15) mEq/L BUN 14 (7-30) mg/dL Creatinine 1.4 (0.5-1.5) mg/dL Estimated Creat Clear 48.52 Estimated GFR 53 ml/min Glucose 193 H (60-115) mg/dL Calcium 9.1 (8.4-10.6) mg/dL SARS-CoV-2 (PCR) Negative SARS-CoV-2 (Negative) Influenza Type A (PCR) Negative PCR FLU A (Negative) Influenza Type B (PCR) Negative PCR FLU B (Negative) RSV (PCR) Negative PCR RSV (Negative) POC Troponin I 0.01 (0.01-0.04) ng/ml Imaging Data Chest x-ray: Attestation: I have reviewed the pertinent imaging results. Radiologist's impression: IMPRESSION: Mild perihilar interstitial opacities and peribronchial cuffing, can be seen in the setting viral infection or other airways disease. ECG Data Attestation: I personally reviewed and interpreted this ECG as follows: Interpretation: Atrial fibrillation Rate: 76 MI: Not measurable QRS axis: Right bundle branch block. ST segment/T wave: New ST segment elevation depression. Nonspecific T-wave changes. QTc: 506 Discharge Plan Discharge Clinical Impression: Asthma exacerbation in COPD Patient Disposition: Home, Self-Care Condition: Stable Instructions: COPD (Chronic Obstructive Pulmonary Disease) (ED) Additional Instructions: As we discussed, please return to the ER right away if you have worsening trouble breathing, chest tightness, shortness of breath, chest pain, fever, or if you have any concerns Please recheck with your regular doctor within 5-7 days, even if you are getting better. Prescriptions: New prednisone 20 mg tablet 40 mg PO DAILY Qty: 10 0RF ipratropium-albuterol 0.5 mg-3 mg(2.5 mg base)/3 mL solution for nebulization 3 ml inhalation Q4H PRNQty: 90 0RF Rx Instructions: until breathing returns to target peak flow/parameters (DME) nebulizers [Compact Compressor Nebulizer] Misc See Rx Instructions .Route Qty: 1 0RF Rx Instructions: As directed No Action isosorbide dinitrate 10 mg tablet 10 mg PO 3XD hydralazine 10 mg tablet 10 mg PO 3XD ipratropium-albuterol 0.5 mg-3 mg(2.5 mg base)/3 mL solution for nebulization 3 ml INHALATION Q6H PRN (Reason: dyspnea) allopurinol 100 mg tablet 100 mg PO DAILY glimepiride 4 mg tablet 4 mg PO DAILY gabapentin 300 mg capsule PO furosemide 20 mg tablet 20 mg PO BID metformin 500 mg tablet extended release 24 hr 500 mg PO BID metoprolol tartrate 25 mg tablet PO Follow Up/Referrals: Giovany Juarez DO [Referring, Family Practice] Stand Alone Forms: [facility] Info Instructions
--- NOTE | 2024-10-03 14:53 | CRLHL7_ITS ---
For Patients: As a result of the Cures Act, medical imaging exams and procedure reports are released immediately into your electronic medical record. You may view this report before your referring provider. If you have questions, please contact your health care provider. INDICATION: DYSPNEA, WHEEZINGS, COUGH. TECHNIQUE: Chest 2 views. COMPARISON: January 11, 2015. FINDINGS: Cardiovascular and mediastinum: Cardiomediastinal silhouette is enlarged similar to prior.. Prosthetic valve is noted. Probable left atrial appendage occluder device. Lungs and pleural spaces: Mild perihilar opacities and peribronchial cuffing. No sign of pleural effusion. No pneumothorax. Bones and soft tissues: No significant findings. IMPRESSION: Mild perihilar interstitial opacities and peribronchial cuffing, can be seen in the setting viral infection or other airways disease. Dictated by Jan Mcmullen MD @ 10/03/2024 4:37:06 PM (Electronically Signed)
[2024-10-03] MEDS: IPRAT-ALBUT 0.5-2.5 MG/3 ML NEB 1 NEB IH ×2 (15:08→16:14)
[2024-10-03] MEDS: predniSONE 20 MG TABLET 40 MG PO (15:08)
[2024-10-03 15:11] LABS: HCO3 VBG 31 mmol/L (21-28); PCO2 VBG 50 mmHG (40-50); PO2 VBG 42.5 mmHG (25-47); pH VBG 7.402 (7.32-7.43)
[2024-10-03 15:13] LABS: PCR FLU A Negative PCR FLU A (Negative); PCR FLU B Negative PCR FLU B (Negative); PCR RSV Negative PCR RSV (Negative); SARS PCR* Negative SARS-CoV-2 (Negative)
[2024-10-03 15:15] LABS: Basophils Absolute Auto 0.03 K/uL (0.00-0.30); Basophils Percent Auto 0.6 % (0.0-3.0); Eosinophils Absolute Auto 0.05 K/uL (0.00-0.50); Hematocrit 45.9 % (37.0-53.0); Hemoglobin* 15.2 gm/dL (13.5-17.5); Immature Granulocytes Abs Auto 0.01 K/uL (0.00-0.30); Immature Granulocytes Pct Auto 0.2 %; Lymphocytes Absolute Auto 1.02 K/uL (0.90-2.90); Mean Corpuscular HGB Conc 33 gm/dL (32-36); Mean Corpuscular Hemoglobin 33 pg (26-34); Mean Corpuscular Volume 99 fL (80-100); Monocytes Percent Auto 11.5 % (0.0-11.0); Neutrophils Absolute Auto 3.41 K/uL (1.7-7.0); Neutrophils Percent Auto 66.7 % (42.0-72.0); Platelet Count* 99 K/uL (140-440); Red Blood Count 4.65 m/uL (4.30-5.90); White Blood Count* 5.11 K/uL (4.50-11.00)
[2024-10-03 15:27] LABS: Chloride* 98 mmol/L (96-114); Slide Review Reflex No; Sodium* 136 mmol/L (135-149)
[2024-10-03 15:28] LABS: Potassium* 4.1 mmol/L (3.6-5.1)
[2024-10-03 15:30] LABS: Blood Urea Nitrogen* 14 mg/dL (7-30); Creatinine* 1.4 mg/dL (0.5-1.5); Est. Creatinine Clearance* 48.52; Estimated Glomerular Filt Rate 53 ml/min
[2024-10-03 15:31] LABS: Anion Gap 8 mEq/L (7-15); Calcium* 9.1 mg/dL (8.4-10.6); Carbon Dioxide* 30 mmol/L (20-32); Glucose* 193 mg/dL (60-115)
[2024-10-03 15:48] LABS: Troponin, Point-of-Care* 0.01 ng/ml (0.01-0.04)
--- OUTSIDE RECORDS SUMMARY | 2024-10-03 15:50 | XMS_ITS | Clinical Summary ---
Author Organization [facility] Address [address] , [address] [place] [address] Phone Care Team Providers Care College Professor Name Role Phone Her Adeel BERMUDEZ Nou Unavailable Conditions or Problems Problem Name Problem Code Onset Date Status Entry Date Provider Comment Standard Description Annotate Chronic kidney disease, stage 3 unspecified N18.30 (ICD-10-CM) 05/02 Active 05/02 Dieudonne Bender MD Chronic kidney disease, stage 3 unspecified Leg weakness, bilateral - mainly distal feet 983512655 (SNOMED CT) 05/02 Active 05/02 Dieudonne Bender MD Paresis of lower extremity Carpal tunnel syndrome, bilateral upper limbs [id number] 01 (SNOMED CT) 05/02 Active 05/02 Dieudonne Bender MD Bilateral carpal tunnel syndrome TIA 992950866 (SNOMED CT) Active Kumar Roland MD Transient cerebral ischemia Numbness/tin gling 782.0 (ICD-9-CM) 05/12 Active 05/12 Aleksandra Mistry MD Disturbance of skin sensation Neuropathy 725102281 (SNOMED CT) 05/12 Active 05/12 Aleksandra Mistry MD Neuropathy Medications Medication Instructions Start Date Stop Date Generic Name [facility] Provider GABAPENTIN 300 MG CAPS capsule by mouth 7 gabapentin [id number] Dieudonne Bender MD ASPIRIN 325 MG TABS once a day 7 aspirin [id number] Dieudonne Bender MD TRAMADOL HCL 50 MG TABS tablet by mouth 7 tramadol [id number] Dieudonne Bender MD METOPROLOL TARTRATE 25 MG TABS metoprolol tartrate 93747694476 Dieudonnekatharina Bender MD FUROSEMIDE 20 MG TABS furosemide 77921506933 Dieudonnekatharina Bender MD ISOSORBIDE DINITRATE 10 MG TABS isosorbide dinitrate 38757743897 Dieudonnekatharina Bender MD GLIMEPIRIDE 4 MG TABS glimepiride [id number] Dieudonnekatharina Bender MD HYDROCODONE-DANN TAMINOPHEN 5-325 MG TABS hydrocodone-ac etaminophen 83974167383 Dieudonnekatharina Bender MD HYDRALAZINE HCL 10 MG TABS hydralazine 45384681288 Dieudonnekatharina Bender MD ALLOPURINOL 100 MG TABS allopurinol 35883820280 Dieudonnekatharina Bender MD GABAPENTIN 300 MG CAPS 600/900/600 GABAPENTIN 86723537008 Aleksandra Mistry MD TRAMADOL HCL 50 MG TABS TRAMADOL HCL [id number] Aleksandra Mistry MD PERCOCET 5-325 MG TABS OXYCODONE-ACET AMINOPHEN [id number] Aleksandra Mistry MD ASPIRIN 325 MG TABS daily ASPIRIN [id number] Aleksandra Mistry MD Medications Administered No information [...] Release information to the Health Information Exchange ([employer]GT[employer]) Office Visit: Office Visit L eg/Feet/hands numb/ting [...] Date ORDERS EMG bilateral low ext 05/02 CPT-10307 Nerve Conduction 9-10 studies CPT-48083 EMG with NCS (5+ muscles) - 2 limbs 05/15 ORDERS EMG bilateral upper ext 2024 ORDERS Patient Instructions ORDERS Physical Therapy [facility]-[id number] Documentation of current medicatio ns [id number] MRI-Brain W/O [id number] MRA-Neck W/O Vital Signs Date Name Value [...]
== END 2024-10-03 17:27 | disposition home or self-care (01) ==
PROVIDERS: Emergency Provider Emergency Medicine; PCP Family Medicine
DX: J44.1 Chronic obstructive pulmonary disease with (acute) exacerbation (principal); J45.901 Unspecified asthma with (acute) exacerbation; F17.200 Nicotine dependence, unspecified, uncomplicated
CPT/HCPCS: 36415; 71046; 80048; 82803; 84484; 85025; 87631; 93005; 94640; 99283; 99284; 99285; J7512